=== PATIENT | female | born 1955 | race Hispanic/Latino ===

== ENCOUNTER 2019-05-14 08:08 | Day surgery (SDC) | payer OTHER ==
[2019-05-12 14:40] VITALS: BP 142/68
[2019-05-12 14:51] LABS: BASOPHILS % (AUTO) 1.3 % (0.0-5.0); EOSINOPHILS % (AUTO) 4.8 % (0.0-8.0); LYMPHOCYTES % (AUTO) 32.6 % (21.0-51.0); MEAN CORPUSCULAR HEMOGLOBIN 31.1 pg (27.0-33.0); MEAN CORPUSCULAR HGB CONC 33.3 g/dL (32.0-36.0); MEAN CORPUSCULAR VOLUME 93.3 fL (79-99); MONOCYTES % (AUTO) 9.4 % (3.0-13.0); NEUTROPHILS % (AUTO) 51.9 % (40.0-77.0); PLATELET COUNT (AUTO) 350 K/uL (130-400); RED BLOOD CELL COUNT(AUTO) 3.64 MIL/uL (4.00-5.50); RED CELL DISTRIBUTION WIDTH 13.7 % (11.0-15.5); WHITE BLOOD COUNT (AUTO) 7.1 K/uL (4.8-10.8)
[2019-05-12 14:52] LABS: APPEARANCE,URINE CLEAR (CLEAR); BILIRUBIN,URINE NEGATIVE (NEGATIVE); COLOR,URINE YELLOW (YELLOW); GLUCOSE, URINE (UA) NEGATIVE (NEGATIVE); KETONES,URINE NEGATIVE (NEGATIVE); LEUKOCYTE ESTERASE ,URINE NEGATIVE (NEGATIVE); NITRATE,URINE NEGATIVE (NEGATIVE); OCCULT BLOOD,URINE NEGATIVE (NEGATIVE); PH,URINE 5.5 (5.0-8.0); PROTEIN,URINE NEGATIVE (NEGATIVE); UROBILINOGEN,URINE 0.2 mg/dL (0.2-1.0)
[2019-05-12 15:21] LABS: ALBUMIN 3.5 g/dL (3.5-5.0); BILIRUBIN,DIRECT 0.1 mg/dL (0.0-0.3); BILIRUBIN,TOTAL 0.3 mg/dL (0.2-1.0); CREATININE 1.2 mg/dL (0.5-1.5); POTASSIUM 5.5 mmol/L (3.5-5.1); TOTAL PROTEIN, SERUM 7.3 g/dL (6.0-8.3)
--- NOTE | 2019-05-12 15:34 | NUR ---
reported ekg results to stephanie Brooke with results no new orders.
--- NOTE | 2019-05-13 14:39 | NUR ---
ABNORMAL POTASSIUM: NOTIFIED POLLY SOMMER CRNA OF POTASSIUM RESULT OF 5.5 HIGH AND CREAT. 1.2, ORDERS GIVEN TO REPEAT POTASSIUM IN AM.
[2019-05-14] VITALS (14 sets, daily range): BP systolic 87–130; BP diastolic 52–62
[~2019-05-14] VITALS: Ht 154.9 cm; Wt 103.4 kg
[~2019-05-14 08:08] MED LIST: AMLO10TA7 PO; ATOR40TA71 PO; FERR325T22 PO; FURO20TA4 PO; INSU100V12 SQ; LISI40TA4 PO; METF-526 PO; METO-391 PO; PANT40TA PO; POTA20TA82 PO; SODIUM CHLORIDE 0.9% 1000ML 1,000 ML IV SCH; SPIR25TA6 PO
[2019-05-14] MEDS ORDERED: SUCCINYLCHOLINE 200MG/10ML SYR ONE (09:08)
[2019-05-14] MEDS ORDERED: MIDAZOLAM HCL 1 MG/ML 2ML VIAL ONE (09:08)
[2019-05-14] MEDS ORDERED: LIDOCAINE PF 2% 5ML ABBOJECT ONE ×2 (09:08→09:12)
[2019-05-14] MEDS ORDERED: DEXAMETHASONE SOD PHOSPHATE 10MG/ML 1ML VIAL ONE (09:08)
[2019-05-14] MEDS ORDERED: ONDANSETRON HCL 4 MG/2 ML VIAL ONE (09:08)
[2019-05-14] MEDS ORDERED: GLYCOPYRROLATE 1 MG/5 ML SYRINGE ONE (09:09)
[2019-05-14] MEDS ORDERED: NEOSTIGMINE 5MG/5ML SYR IV ONE (09:09)
[2019-05-14] MEDS ORDERED: PROPOFOL 10 MG/ML 20ML VIAL IV ONE (09:09)
[2019-05-14] MEDS ORDERED: ROCURONIUM 10MG/1ML SYR 10 MG/ML ML ONE (09:09)
[2019-05-14] MEDS ORDERED: FENTANYL CITRATE PF 50 MCG/1 ML 2ML VIAL ONE ×3 (09:10→11:04)
[2019-05-14] MEDS ORDERED: EPHEDRINE SULFATE 50 MG/ML AMPULE ONE (09:56)
[2019-05-14] MEDS ORDERED: FUROSEMIDE 10 MG/ML 4ML VIAL ONE (11:09)
[2019-05-14] MEDS ORDERED: MEPERIDINE-PF 25 MG/ML SYG ONE (11:36)
--- NOTE | 2019-05-14 12:15 | NUR ---
RECEIVE PT RECEIVED FROM PACU VIA STRETCHER AWAKE ALERT ORIENTED X3. STABLE. NO COMPLAINTS MADE. NOT IN ANY APPARENT DISTRESS. ABDOMEN SOFT. BAND AIDS X4 TO ABDOMEN DRY AND INTACT, NO OOZING NOTED. WILL CONTINUE TO MONITOR PT. WILL CALL FOR TO COME IN. CALL SAMANIEGO WITHIN REACH.
--- NOTE | 2019-05-14 13:00 | NUR ---
DISCHARGE PT DISCHARGED VIA WHEELCHAIR WITH . STABLE. NO COMPLAINTS MADE. ABDOMEN REMAINS SOFT, BAND AID DRESSINGS REMAIN DRY AND INTACT, NO OOZING OR BLEEDING NOTED. DISCHARGE INSTRUCTIONS GIVEN TO AND PT EARLIER, VERBALIZED UNDERSTANDING.
== END 2019-05-14 13:00 | disposition home or self-care (01) ==
LOC: DAH 08:08
PROVIDERS: ATTEND Surgery
DX: K80.10 Calculus of gallbladder with chronic cholecystitis without obstruction (principal); G43.909 Migraine, unspecified, not intractable, without status migrainosus; I10 Essential (primary) hypertension; K21.9 Gastro-esophageal reflux disease without esophagitis; E78.5 Hyperlipidemia, unspecified; F15.90 Other stimulant use, unspecified, uncomplicated; M19.90 Unspecified osteoarthritis, unspecified site; E66.01 Morbid (severe) obesity due to excess calories; E10.9 Type 1 diabetes mellitus without complications; Z79.4 Long term (current) use of insulin; Z79.899 Other long term (current) drug therapy; Z79.84 Long term (current) use of oral hypoglycemic drugs; Z90.710 Acquired absence of both cervix and uterus; Z68.41 Body mass index [BMI] 40.0-44.9, adult; Z79.2 Long term (current) use of antibiotics
CPT/HCPCS: 36415 ×2; 47562; 80048; 80076; 81003; 82948 ×2; 84132; 85025; 88304; 93005; A4450; A4510; A4649; C1769 ×4; J0330; J1100; J1940; J2001 ×2; J2175; J2250; J2405; J2704; J2710; J3010 ×3; J3490 ×2; J7030 ×2; J7120